=== PATIENT | female | born 2000 | race Caucasian/White ===

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

== ENCOUNTER 2022-06-29 02:13 | Emergency (ER) | payer OTHER, BC ==
[2022-06-29 02:38] VITALS: TEMP 97.9
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
[2022-06-29 09:13] LABS: Appearance,Urine Clear (Clear); Bilirubin,Urine Negative (Negative); Blood,Urine Negative (Negative); Color,Urine Yellow; Glucose,Urine (UA) Negative (Negative); Ketones,Urine Negative (Negative); Leukocyte Esterase,Urine Negative (Negative); Nitrite,Urine Negative (Negative); Protein,Urine Negative (Negative); Specific Gravity,Urine 1.021 (1.001-1.035); Urobilinogen,Urine <2.0 mg/dL (<2.0)
[2022-06-29 09:24] LABS: Amphetamine Screen,Urine Not Detected (NotDetected); Barbiturate Screen,Urine Not Detected (NotDetected); Benzodiazepines Screen,Urine Not Detected (NotDetected); Cocaine Screen,Urine Not Detected (NotDetected); Methadone Screen, Urine Not Detected (NotDetected); Opiate Screen,Urine Not Detected (NotDetected); Oxycodone Screen, Urine Not Detected (NotDetected); Phencyclidine Screen,Urine Not Detected (NotDetected); Tricyclic Antidepressant,Urine Not Detected (NotDetected); Urn Cannabinoid Scrn Detected (NotDetected)
[2022-06-29] MEDS ORDERED: LIDOCAINE 1% INJ 10MG/ML (30 ML VIAL-PF) SQ ONE (10:00)
[2022-06-29 10:40] VITALS: BP 142/81; PULSE 72; RESP 18
== END 2022-06-29 10:40 | disposition home or self-care (01) ==
LOC: EC 02:13
DX: F32.A Depression, unspecified (principal); Z04.3 Encounter for examination and observation following other accident
CPT/HCPCS: 82075; 81003; 81025; 80306; 72125; 70486; 70450; 99285; 12001; J2001

== ENCOUNTER → 2022-09-11 | Outpatient (CLI) | payer BC ==
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
--- NOTE | 2022-09-11 13:51 | XR ---
EXAMINATION TYPE: XR lumbosacral spine min 4V DATE OF EXAM: 09/11/2022 1:38 PM INDICATION: Patient age:Female; 22 years old; Reason for study: M54.50 back pain; PH[facility]. COMPARISON: None TECHNIQUE: Frontal, bilateral oblique, and lateral projections of the lumbar spine. FINDINGS: There are 6 lumbar type vertebral bodies identified. No evidence of any acute osseous patho logy. No evidence of loss of vertebral body height is seen. There is normal alignment of the lumbar vertebral bodies. IMPRESSION: No acute process.
== END | disposition home or self-care (01) ==
LOC: RADXRMAIN 13:02
PROVIDERS: ATTEND Family Medicine
DX: M54.50 Low back pain, unspecified (principal); M79.601 Pain in right arm
CPT/HCPCS: 72050; 72110